=== PATIENT | male | born 1950 | race Caucasian/White ===

== ENCOUNTER → 2020-12-24 14:47 | Outpatient (BNVA) | payer MEDICARE, SELFPAY | PROVIDERS: PCP Internal Medicine; Visit Provider Internal Medicine | DX: I48.19 Other persistent atrial fibrillation (principal); I10 Essential (primary) hypertension; R06.02 Shortness of breath | CPT/HCPCS: 93005 ==

== ENCOUNTER → 2020-12-26 14:01 | Outpatient (BNVA) | payer MEDICARE, SELFPAY | PROVIDERS: PCP Internal Medicine; Visit Provider Nurse Practitioner Family ==

== ENCOUNTER → 2020-12-31 13:58 | Outpatient (BNVA) | payer MEDICARE, SELFPAY | PROVIDERS: PCP Internal Medicine; Visit Provider Nurse Practitioner Family | DX: Z13.89 Encounter for screening for other disorder (principal) | CPT/HCPCS: Q3014 ==

== ENCOUNTER → 2021-01-30 09:31 | Outpatient (REF) | payer MEDICARE, SELFPAY ==
--- NOTE | 2021-01-30 09:46 | CA_ITS ---
Transthoracic Echocardiogram Patient (Last, First, Middle): Law Ferris, Gender: Male Date of : 1950 Age: 70 Procedure Date: 01/30/2021 Procedure Type: Transthoracic Echocardiogram Location: OP Height: 167.64 cm Weight: 73.48 kg BSA: 1.83 m2 Heart Rate: bpm BP: 106 / 54 mmHg Nursery Helper: Jose Miguel MD: Wilfredo Diaz MD Streetcar Starter: Deepak Goode MD Symptoms: I48.19 - Other persistent atrial fibrillation Study Quality: Fair ECG Rhythm: Atrial Fibrillation Conclusions: - 1. Normal LV systolic function 2. Mild biatrial enlargement 3. Mild mitral regurgitation 4. Normal RV systolic pressure 5. No pericardial effusion Findings Left Ventricle Normal left ventricular size, thickness, and systolic function. The visually estimated ejection fraction is between 60-65%. Diastolic function is indeterminate on the basis of available data. Right Ventricle Mildly increased right ventricular cavity size. There is low normal right ventricular systolic function. Atria The left atrium is mildly dilated. There is no evidence of interatrial shunt. The right atrium is mildly dilated. Aortic Valve There is mild calcification of the aortic valve. There is no aortic valve stenosis. There is no aortic valve regurgitation. Mitral Valve There is mild anterior and posterior mitral leaflet thickening. There is mild mitral valve regurgitation. There is no mitral valve stenosis. Pulmonic Valve The pulmonic valve was not well visualized. Tricuspid Valve Likely normal tricuspid valve structure and function. There is mild tricuspid valve regurgitation. The right ventricular systolic pressure is normal. The right ventricular systolic pressure is 27 mmHg. Normal right atrial pressure. There is no evidence of pulmonary hypertension. Great Vessels All visible segments of the aorta are normal in size. The pulmonary artery was not well visualized. Venous The inferior vena cava is normal in size and collapses greater than 50% with inspiration. Pericardium/Pleural There is no evidence of pericardial effusion. Prior Study Comparison No prior study available for comparison. Measurements 2D Linear Measurements RVIDd: 2.71 RVIDd Index: 1.48 IVSd: 0.88 0.6-0.9/0.6-1.0 cm LVIDd: 4.31 3.9-5.3/4.2-5.9 cm LVIDd Index: 2.36 2.4-3.2/2.2-3.1 cm/m2 LVIDs: 3.22 2.0-3.6 cm LVPWd: 1.22 0.7-1.1 cm Ao Root: 2.70 2.1-3.5 cm LA Diam: 4.00 2.7-3.8/3.0-4.0 cm LAIDs Index: 2.19 1.5-2.3 cm/m2 LV Mass: 190.90 67-162/88-224 g LV Mass Index: 104.32 43-95/49-115 g/m2 LVOT Diam: 2.00 3.0+(-)1.3 cm 2D Systolic Function EF 4C: 66.90 >55% EF 2C: 78.60 >55% EF BiP: 72.90 >55% Mitral Valve MR Vol - PW Dopp: 15.48 MR VTI: 1.29 MR ERO: 12.00 MR Alias Luis M: 0.31 MR RAD: 0.50 Aortic Valve AoV Pk Luis M: 1.75 AoV Mn Luis M: 1.13 AoV VTI: 0.33 AoV Pk Grad: 12.00 Aov Mn Grad: 6.00 TAM Cont.VTI: 2.07 LVOT LVOT Pk Luis M: 1.07 LVOT Mn Luis M: 0.77 LVOT VTI: 0.22 LVOT Pk Grad: 5.00 LVOT Mn Grad: 3.00 LVOT Diam: 2.00 LVOT Area: 3.14 Tricuspid Valve TR Pk Luis M: 2.45 TR Pk Grad: 24.00 RA Press: 3.00 RVSP: 27.00 Great Vessels Aorta Ao Root-2D: 2.70 2.0-3.7 cm Ao Asc: 2.70 2.1-3.4 cm Ao Arch: 2.30 Updated in Other Vendor System with Status of Final Deepak Goode MD electronically signed on 01/30/2021 5:09:13 PM with status of Final
--- NOTE | 2021-01-30 09:46 | ECG_ITS ---
Hook-up date: 2021-01-30 10:53:00 Duration: 47:59:00 Test Indications: PERSISTENT ATRIAL FIB Medications: [id number] QRS complexes 62 Ventricular ectopics which represent <1 % of total QRS comp. 1 Supraventricular ectopics which represent <1 % of total QRS comp. * Paced QRS complexs which represent % of total QRS comp. VENTRICULAR ECTOPY 62 Isolated 0 Bigeminal Cycles 0 Couplets 0 Runs 0 Beats in Runs * Beats LONGEST at * BPM at :: -- * Beats FASTEST at * BPM at :: -- SUPRAVENTRICULAR ECTOPY 1 Isolated 0 Couplets 0 Runs 0 Beats in Runs * Beats LONGEST at * BPM at :: -- * Beats FASTEST at * BPM at :: -- HEART RATES 36 MIN at 07:04:30 2021-01-31 99 AVG 179 MAX at 15:10:21 2021-01-30 LONGEST RR 2.2240 secs at 07:04:28 2021-01-31 S-T LEVELS Channel 1 - 128 mm at 10:53:00 2021-01-30 - 128 mm at 10:53:00 2021-01-30 Channel 2 - 128 mm at 10:53:00 2021-01-30 - 128 mm at 10:53:00 2021-01-30 Channel 3 - 128 mm at 03:01:21 -- - 128 mm at 03:01:21 Underlying rhythm is atrial fibrillation; Average ventricular rate 99/min; range 36-179/min; About 61% of the time, ventricular rate >100/min; Tachycardic episodes predominantly during day; Rare PVCs; Patient did not report any symptoms in the diary Referred By: Kerry Watts Overread By: KERRY WATTS
== END ==
LOC: HO.CARD 09:31
PROVIDERS: PCP Internal Medicine; Visit Provider Internal Medicine
DX: I48.19 Other persistent atrial fibrillation (principal)
CPT/HCPCS: 93225; 93226; 93306

== ENCOUNTER → 2021-02-13 12:33 | Outpatient (BNVA) | payer MEDICARE, SELFPAY | PROVIDERS: PCP Internal Medicine; Visit Provider Internal Medicine | DX: I48.19 Other persistent atrial fibrillation (principal); I10 Essential (primary) hypertension; R06.02 Shortness of breath | CPT/HCPCS: 93005; 99212 ==

== ENCOUNTER 2021-02-20 09:01 | Day surgery (SDC) | payer MEDICARE, SELFPAY ==
[2021-02-20 11:32] VITALS: BMI 24.5
[2021-02-20 11:38] VITALS: BP 128/84; PULSE 87; RESP 18; TEMP 36.1; O2SAT 97
--- NOTE | 2021-02-20 11:39 | P.CONAN_ITS ---
[facility] Active Problems Active Problems: All Active Problems (Updated 12/24/20 @ 15:47 by Wilfredo huff MD) Essential hypertension (Acute) Shortness of breath (Acute) Persistent atrial fibrillation (Acute) Past Medical History Medical History Essential hypertension Persistent atrial fibrillation Family History Family History Father History of coronary artery bypass graft Heart disease Lyme disease Mother Heart disease Surgical History Surgical History H/O colonoscopy H/O hand surgery History of inguinal hernia repair History of removal of testicle Social History Social History Housing: Assisted Living Facility Alcohol intake: current Alcohol intake frequency: 3 or more drinks per day Alcohol type: wine and hard liquor Smoking Status: Current every day smoker Tobacco Type: Cigar and E-Cigarette Cigarettes Per Day: 1 Use of substances other than those prescribed or required for medical reasons: Yes Substance Use Type: Marijuana Advance Directives: No Advance Directives Information Provided: Yes Meds Allergies Allergy/AdvReac Type Severity Reaction Status Date / Time indomethacin Allergy went Verified 02/13/21 12:53 psychotic Home Medications Medication Instructions Recorded Confirmed Last Taken Type allopurinol 300 mg tablet 300 mg PO DAILY 12/24/20 02/13/21 Unknown History cholecalciferol (vitamin D3) 50 50 mcg PO DAILY 12/24/20 02/13/21 Unknown History mcg (2,000 unit) capsule cyanocobalamin (vitamin B-12) 1,000 mcg PO DAILY 12/24/20 02/13/21 Unknown History 1,000 mcg capsule dabigatran etexilate 150 mg capsule 150 mg PO BID 12/24/20 02/13/21 Unknown History diltiazem HCl 240 mg capsule,24 240 mg PO DAILY 12/24/20 02/13/21 Unknown History hr,extended release doxazosin 4 mg tablet 4 mg PO DAILY 12/24/20 02/13/21 Unknown History ezetimibe 10 mg tablet 10 mg PO DAILY 12/24/20 02/13/21 Unknown History folic acid 0.8 mg capsule 0.8 mg PO DAILY 12/24/20 02/13/21 Unknown History levothyroxine 50 mcg tablet 50 mcg PO DAILY 12/24/20 02/13/21 Unknown History pravastatin 80 mg tablet 80 mg PO DAILY tab 12/24/20 02/13/21 Unknown History ramipril 2.5 mg capsule 2.5 mg PO DAILY 12/24/20 02/13/21 Unknown History kmecwvrvgzzh-fuo-gaclz acid-vit 1 tab PO DAILY 12/31/20 02/13/21 Unknown History K-lycop 400 mcg-20 mcg-370 mcg tablet Exam Exam Date and Time: February 20, 2021 1139 Height,Weight and Vital Signs: Height 5 ft 6 in Weight 69.116 kg Airway Mallampati Class: II TM Dist: >3cm Neck ROM: Full Heart: irregular Lungs: CTA
[2021-02-20] MEDS: Lactated Ringers 1,000 ML 20 ML IVCONT (11:47)
[2021-02-20 12:24] VITALS: BP 128/84; PULSE 87; RESP 18; TEMP 36.1; O2SAT 97; BMI 24.5
--- NOTE | 2021-02-20 12:28 | MHC.SHP ---
Pre-Procedural Eval Section B Chief Complaint: Screening Relevant Family History (Specify if Yes): No Relevant Social History: Tobacco Use (everyday drinker) Present Medications: see Short Stay Collaborative assessment Medical History: Significant History (Essential hypertension Persistent atrial fibrillation) History of Previous Operations: Relevant previous surgery/procedure and date(s) Allergies: Allergies Allergy/AdvReac Type Severity Reaction Status Date / Time indomethacin Allergy went Verified 02/13/21 12:53 psychotic Review of Systems Sugical H&P ROS: Negative: Constitution, Cardiovascular, Respiratory, Neurological, Psychiatric, Hem-Onc, Allergic/Immunologic, Gastrointestinal, Genitourinary, Musculoskeletal, Integumentary, Endocrine and Eyes/Ears/Nose/Throat Exam Surgical H&P Exam: Normal: HEENT, Normal: Heart, Normal: Lungs, Normal: Extremities, Normal: Abdomen, Normal: Skin and Normal: Neurological Plan Diagnosis/Plan: Unchanged I have reviewed the history and physical and performed a pertinent physical examination on my patient. No changes have occurred unless specified.
--- NOTE | 2021-02-20 12:29 | PM.OP ---
Brief Operative Note Date of Service: 02/20/21 Pre-op diagnosis: hx of colon polyps Post-op diagnosis: same Procedure: see op note Surgeon: Ulises Helm MD Anesthesia: MAC Estimated blood loss (mL): 0 Condition: stable Disposition: PACU
--- NOTE | 2021-02-20 12:30 | W.PM.OPN ---
Operative Note Operative Note Date of Service: 02/20/21 Narrative: Operative Information Procedure Description: Colonoscopy COLONOSCOPY Instrument: Olympus variable stiffness pediatric scope 190L Colonoscopy Monitoring: Vital signs and clinical assessment, continuous EKG monitoring, Pulse oximetry, Carbon Dioxide monitoring and blood pressure monitoring were done throughout the procedure. Colon withdrawal time was 20 minutes. Procedure: The patient was placed in the left lateral decubitis position and pre-procedure medications were administered. After a digital rectal examination of the ano-rectum, the video colonoscope was inserted into the rectum and advanced through the colon to the cecum/TI. The colonoscope was slowly withdrawn in a retrograde panoramic fashion and the colon mucosa was carefully examined including a retroflexed view of the rectum. Findings and interventions are described below. Procedure Difficulty:easy Findings: Terminal Ileum-normal Cecum:normal Ascending Colon: normal Transverse Colon - x 2 sessile polyps measuring 8-10 mm removed with cold snare Descending Colon: 8-9 mm sessile polyp removed with cold snare Sigmoid Colon: normal Rectum: Retroflexion with small internal hemorrhoids, grade I, x 4 sessile polyps measuring 10 mm removed with cold snare Anorectum - normal Colon preparation: Phoenix Bowel Preparation Scale Right colon; 2 Transverse colon: 1 Left colon; 1 (0 = Unprepared colon segment with mucosa not seen due to solid stool that cannot be cleared. 1 = Portion of mucosa of the colon segment seen, but other areas of the colon segment not well seen due to staining, residual stool and/or opaque liquid. 2 = Minor amount of residual staining, small fragments of stool and/or opaque liquid, but mucosa of colon segment seen well. 3 = Entire mucosa of colon segment seen well with no residual staining, small fragments of stool or opaque liquid) Impression and Post Procedure Diagnosis: polyps internal hemorrhoids Plan: High fiber diet leaflet Avoid straining at stool, epsom salts and sitz bath, anusol supps or cream Repeat Colonoscopy in 8-12 months or earlier if clinically indicated review prep for next time restart anti coagulation tomorrow Above findings were reviewed with the patient and relevant handouts were provided if indicated.
[2021-02-20 13:18] VITALS: BP 114/67; PULSE 82; RESP 16; TEMP 36.2; O2SAT 93
[2021-02-20 13:31] VITALS: BP 103/60; PULSE 88; RESP 18; O2SAT 93
[2021-02-20 13:45] VITALS: BP 128/81; PULSE 90; RESP 18; TEMP 36.1; O2SAT 95
== END 2021-02-20 14:24 | disposition home or self-care (01) ==
PROVIDERS: PCP Internal Medicine; Visit Provider Internal Medicine Gastroenterology
PROC: 0DJD8ZZ Inspection of Lower Intestinal Tract, Via Natural or Artificial Opening Endoscopic (ICD-10-PCS; CPT 45378; principal; 2021-02-20 12:50)
DX: Z12.11 Encounter for screening for malignant neoplasm of colon (principal); K63.5 Polyp of colon; K62.1 Rectal polyp; K64.0 First degree hemorrhoids; I10 Essential (primary) hypertension; I48.19 Other persistent atrial fibrillation; Z79.899 Other long term (current) drug therapy; Z88.8 Allergy status to other drugs, medicaments and biological substances; F17.290 Nicotine dependence, other tobacco product, uncomplicated
CPT/HCPCS: 45385; 88305

== ENCOUNTER 2021-03-18 11:01 | Outpatient (REF) | payer MEDICARE, SELFPAY ==
[2021-03-18 12:47] LABS: Alanine Aminotransferase 16 U/L (0-40); Albumin Level 3.8 g/dL (3.5-5.0); Alkaline Phosphatase 61 U/L (39-117); Anion Gap 13 (12-20); Aspartate Amino Transferase 26 U/L (5-37); Bilirubin Direct < 0.2 mg/dL (0.0-0.5); Bilirubin Total 0.5 mg/dL (0.0-1.0); Blood Urea Nitrogen 20 mg/dL (9-16); Calcium 9.2 mg/dL (8.4-10.2); Carbon Dioxide 22 mmol/L (22-29); Chloride 107 mmol/L (96-108); Estimated Glomerular Filt Rate > 60; Glucose Random 99 mg/dL (60-115); Potassium 5.3 mmol/L (3.3-5.1); Sodium 137 mmol/L (135-145); Total Protein 7.4 g/dL (6.5-8.0)
[2021-03-18 13:33] LABS: Syphilis Screen Nonreactive (Nonreactive)
[2021-03-18 13:34] LABS: Vitamin B12 1851 pg/mL (200-900)
[2021-03-20 07:01] LABS: Lyme Abs Screen <0.90 index
== END 2021-03-18 11:02 | disposition home or self-care (01) ==
LOC: HO.LAB 11:01
PROVIDERS: PCP Internal Medicine; Visit Provider Psychiatry & Neurology Neurology
DX: F06.8 Other specified mental disorders due to known physiological condition (principal); F10.10 Alcohol abuse, uncomplicated
CPT/HCPCS: 36415; 80048; 80076; 82607; 86617; 86618; 86780

== ENCOUNTER 2021-03-22 10:02 | Outpatient (REF) | payer MEDICARE, SELFPAY ==
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
== END 2021-03-22 10:03 | disposition home or self-care (01) ==
LOC: HO.MRI 10:02
PROVIDERS: Visit Provider Psychiatry & Neurology Neurology
DX: F06.8 Other specified mental disorders due to known physiological condition (principal)
CPT/HCPCS: 70551

== ENCOUNTER 2021-04-03 10:34 | Outpatient (REF) | payer MEDICARE, SELFPAY ==
--- NOTE | 2021-04-03 10:41 | EMG_ITS ---
This is a 70-year-old man with weakness and atrophy of the right hand, numbness in 4th and 5th fingers who has had bilateral carpal tunnel repair a few years ago and now getting worse with inability to use the right hand, which has become like a claw. Some mild symptoms on the left. He also has heart disease, is on amlodipine and Xarelto. PHYSICAL EXAMINATION: On examination, he has atrophy of the ulnar innervated intrinsic hand muscles on the right. He has a flexion contracture of the right 4th finger. Well-healed scar of previous carpal tunnel release. IMPRESSION: Bilateral carpal tunnel syndrome, right ulnar neuropathy. Nerve conduction EMG study: Mild bilateral carpal tunnel syndrome. 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 EMG of the right C5-T1 innervated muscles shows active denervation in the ulnar innervated intrinsic hand muscles consistent with active and severe ulnar neuropathy on the right. MD SAMIR Gandhi/CRISTHIAN / [id number]
== END 2021-04-03 10:35 | disposition home or self-care (01) ==
LOC: HO.NEURO 10:34
PROVIDERS: PCP Internal Medicine; Visit Provider Emergency Medicine
DX: G56.03 Carpal tunnel syndrome, bilateral upper limbs (principal)
CPT/HCPCS: 95886; 95913

== ENCOUNTER → 2021-04-08 11:20 | Outpatient (BNVA) | payer MEDICARE, SELFPAY | PROVIDERS: PCP Internal Medicine; Referring Provider Internal Medicine; Visit Provider Nurse Practitioner Family | DX: Z98.890 Other specified postprocedural states (principal) | CPT/HCPCS: 99212 ==

== ENCOUNTER → 2021-07-17 09:42 | Outpatient (BNVA) | payer MEDICARE, SELFPAY | PROVIDERS: Visit Provider Orthopaedic Surgery | DX: G56.21 Lesion of ulnar nerve, right upper limb (principal); G56.03 Carpal tunnel syndrome, bilateral upper limbs; M25.641 Stiffness of right hand, not elsewhere classified; M65.331 Trigger finger, right middle finger | CPT/HCPCS: 99202 ==

== ENCOUNTER 2021-08-08 06:14 | Day surgery (SDC) | payer MEDICARE, SELFPAY ==
[2021-08-08] VITALS (8 sets, daily range): BP systolic 112–144; BP diastolic 60–87; PULSE 63–73; RESP 16–20; TEMP 36.2–36.4; O2SAT 87–95; BMI 27.4
--- NOTE | 2021-08-08 07:23 | MHC.SHP ---
Pre-Procedural Eval Section A Date of Service: 08/08/21 The patient is an INPATIENT: No Changes since office visit: No Cold of Flu in the past 2 weeks, No New Medical Problems, No Changes in Medication and No Patient answered all questions The History & Physical has been completed within 30 days and I have reviewed it.: Yes Section B Chief Complaint: carpal tunnel syndrome Allergies: Allergies Allergy/AdvReac Type Severity Reaction Status Date / Time indomethacin Allergy went Verified 07/17/21 10:13 psychotic Plan I have reviewed the history and physical and performed a pertinent physical examination on my patient. No changes have occurred unless specified.
--- NOTE | 2021-08-08 07:24 | P.OP_ITS ---
Operative Note Operative Note Date of Service: 08/08/21 Narrative: Operative Note Narrative: Preop diagnosis: 1. Right Cubital tunnel syndrome 2. Right middle finger trigger finger 3. Right middle finger PIP joint stiffness Postop diagnosis: Same Procedure: 1. Right Cubital Tunnel Release 2. Right middle finger A1 kyra release 3. Right middle finger ulnar slip FDS tenotomy 4. Right middle finger PIP joint closed manipulation Surgeon: Amaris Inman MD Anesthesia: General Findings: He still had locking and catching after the right middle finger A1 kyra release. No locking and catching after the right middle finger FDS ulnar slip tenotomy. Thickening and fibrosis about the ulnar nerve at the cubital tunnel Implants: none Tourniquet time: 45 minutes EBL: 5.0 ml Specimen: Right middle finger ulnar slip of flexor digitorum superficialis tendon Drains: None Complications: None Disposition: Brought to the recovery room in stable condition Plan: Follow-up in 10-14 days for wound check, and suture removal and to check pathology Check range of motion. Patient had closed manipulation of the middle finger PIP joint. If having difficulty with range of motion recommend early OT hand therapy Indications: The patient is 70 years old man with right cubital tunnel syndrome and a right middle finger trigger finger with stiffness in the PIP joint . The risks and benefits of operative treatment, including but not limited to risk of damage to blood vessels, nerves, tendons, infection, recurrence, persistent pain or numbness, incomplete resolution of preoperative symptoms, or need for further surgery were discussed with the patient and they wished to proceed with surgery. Procedure: Once consent was obtained patient was brought back to the operating suite and placed in the operating table in a supine position. Perioperative antibiotics and anesthesia was administered by the anesthesia team. The limb was prepped and draped in a standard surgical fashion, and a sterile tourniquet applied to the proximal aspect of the right upper extremity. The limb was elevated exsanguinated with Esmarch bandage and the tourniquet inflated to 250 mm of mercury for a total tourniquet time of 45 minutes. Once assured that we had a good block, a 1.5 cm oblique incision was made centered over the A1 kyra of the right middle finger . The incision was made through the skin to the subcutaneous tissues using a #15 blade. Careful dissection was made down to the level of the A1 kyra using tenotomy scissors, with care being taken to protect the nearby neurovascular structures. A longitudinal incision was made in the A1 kyra 1st using a #15 blade, then using tenotomy scissors under direct visualization. The A1 kyra was noted to be thickened. Following our A1 kyra release, we saw that he still had locking of his middle finger with passive flexion and extension. The decision was then made to proceed with a tenotomy of the ulnar slip of the flexor digitorum superficialis tendon. I made a partial Baljit incision centered over the volar aspect of the PIP joint. The incision was made through the skin to the subcutaneous tissues using a 15. Blade. I then carefully dissected down to the level of the flexor tendon sheath and opened the flexor tendon sheath through the A- 3 kyra. The FDP tendon was retracted and and the ulnar slip of the FDS tendon was cut just proximal to its insertion using tenotomy scissors. A 15. Blade and tenotomy scissors were then used to split the 2 halves of the FDS tendon extending proximally. I then was able to withdraw the ulnar slip of the FDS tendon back through the A1 kyra area. The ulnar half of the FDS tendon was then tenotomy mice in this area making a bevel cut using a 15. Blade. It was then passed off to the back table to be sent for pathology. He no longer had locking or catching with passive flexion and extension. A gentle closed manipulation of the right middle finger PIP joint to improve active and passive range of motion was then performed. Were then able to passively bring the middle finger down to a fully closed fist and then back into full extension this was a significant improvement. Our attention was then turned to the cubital tunnel release. A 6 cm gently curved but longitudinally oriented incision was made centered over the cubital tunnel of the right upper extremity. Incision was made through the skin to the subcutaneous tissues using a # 15 Blade. I then dissected down to the level of the medial epicondyle and the cubital tunnel using tenotomy scissors. Care was taken to protect the lateral antebrachial cutaneous nerve. The ulnar nerve was identified just posterior to the medial intermuscular septum. Small vessel loop was passed behind the ulnar nerve and used to apply gentle traction to facilitat e our release. The ulnar nerve was released in a proximal to distal direction using tenotomy in iris scissors while directly visualizing and protecting the ulnar nerve. Thickening and fibrosis was appreciated about the ulnar nerve as it passed through the cubital tunnel. The ulnar nerve was assessed as I passed the elbow through full flexion and extension and was found to remain stable within its groove. The tourniquet was deflated and hemostasis obtained with a brief period of local pressure and bipolar electrocautery. The wounds were copiously irrigated with normal saline. The subcutaneous layer was closed with 4-0 Vicryl suture, and the skin edges were reapproximated with 5-0 nylon suture. The wound was infiltrated with some 0.25% plain Marcaine for postop pain control and sterile dressings and a posterior splint was applied. The patient appears to have tolerated the procedure well and with no complications. All digits were well vascularized conclusion of the case.
--- NOTE | 2021-08-08 10:05 | P.CONAN_ITS ---
[facility] Active Problems Active Problems: All Active Problems (Updated 08/01/21 @ 11:06 by Jaclyn bryant RN) Shortness of breath (Acute) Cubital tunnel syndrome on right (Acute) Carpal tunnel syndrome of right wrist (Acute) Carpal tunnel syndrome of left wrist (Acute) Stiffness of finger joint of right hand (Acute) Trigger finger, right middle finger (Acute) Essential hypertension (Acute) Persistent atrial fibrillation (Acute) Past Medical History Medical History Essential hypertension Excessive drinking alcohol HTN (hypertension) Hypercholesteremia Hypothyroidism On anticoagulant therapy Paresthesias Persistent atrial fibrillation Family History Family History Father History of coronary artery bypass graft Heart disease Lyme disease Mother Heart disease Family history of problems with anesthesia: No Surgical History Surgical History H/O colonoscopy H/O hand surgery History of inguinal hernia repair History of removal of testicle History of Problems with Anesthesia: No Social History Social History Household Members Other:: [facility] living Housing: Assisted Living Facility Alcohol intake: current Alcohol intake frequency: 3 or more drinks per day Alcohol type: wine and hard liquor Patient Tobacco Use Status: Current everyday Tobacco user Tobacco use type: Cigar and Smokeless Tobacco Cigarettes Per Day: 1 Second Hand Smoke Exposure: No Use of substances other than those prescribed or required for medical reasons: Yes Substance Use Type: Marijuana Are you DNR?: No Advance Directives: No Advance Directives Information Provided: Yes Advance Directives on File: No Current occupational status: retired Current occupation: rt hand Meds Allergies Allergy/AdvReac Type Severity Reaction Status Date / Time indomethacin Allergy went Verified 07/17/21 10:13 psychotic Home Medications Medication Instructions Recorded Confirmed Last Taken Type allopurinol 300 mg tablet 300 mg PO DAILY 12/24/20 08/01/21 Unknown History cholecalciferol (vitamin D3) 50 50 mcg PO DAILY 12/24/20 08/01/21 Unknown History mcg (2,000 unit) capsule cyanocobalamin (vitamin B-12) 1,000 mcg PO DAILY 12/24/20 08/01/21 Unknown History 1,000 mcg capsule doxazosin 4 mg tablet 4 mg PO DAILY 12/24/20 08/01/21 Unknown History ezetimibe 10 mg tablet 10 mg PO DAILY 12/24/20 08/01/21 Unknown History folic acid 0.8 mg capsule 0.8 mg PO DAILY 12/24/20 08/01/21 Unknown History levothyroxine 50 mcg tablet 50 mcg PO DAILY 12/24/20 08/01/21 Unknown History pravastatin 80 mg tablet 80 mg PO DAILY tab 12/24/20 08/01/21 Unknown History ramipril 2.5 mg capsule 2.5 mg PO DAILY 12/24/20 08/01/21 Unknown History fqkmjvtpqufh-cbl-pbrrh acid-vit 1 tab PO DAILY 12/31/20 08/01/21 Unknown History K-lycop 400 mcg-20 mcg-370 mcg tablet (Men's 50 Plus Multivitamin) diltiazem HCl 240 mg capsule,24 1 cap PO DAILY 08/01/21 08/01/21 Unknown History hr,extended release (Tiadylt ER) Exam Exam Date and Time: August 08, 2021 1005 Height,Weight and Vital Signs: Height 5 ft 6 in Weight 170 lb Last Vital Signs Temp 97.1 F 08/08/21 07:25 Pulse 70 08/08/21 07:25 Resp 18 08/08/21 07:25 BP 144/64 H 08/08/21 07:25 Pulse Ox 94 08/08/21 07:25 Airway Mallampati Class: II TM Dist: >3cm Neck ROM: Full Loose/Missing/Broken Teeth: Yes (Most teeth missing; none loose per report; poor dentition) Assessment and Plan Assessment Anesthesia Assessment: Anesthesia Plan Discussed and Chart Reviewed Final Anesthetic Review Family History of Problems with Anesthesia: No History of Problems with Anesthesia: No NPO: Yes ASA Class: III Final Preanesthetic Review: No Changes in Pt Med Stat, Meds/Allgs Chart Reviewed, Consent Obtained/Reviewed and Anes Risks/Benef Reviewed Patient Risk: High Procedure Risk: Low Anesthetic Plan Anesthetic Plan: GA Disposition: Standard PACU
== END 2021-08-08 12:51 ==
PROVIDERS: PCP Internal Medicine; Visit Provider Orthopaedic Surgery
PROC: (CPT 64718; principal; 2021-08-08 08:45)
DX: G56.21 Lesion of ulnar nerve, right upper limb (principal); M65.331 Trigger finger, right middle finger; M25.641 Stiffness of right hand, not elsewhere classified; I10 Essential (primary) hypertension; I48.91 Unspecified atrial fibrillation; Z79.01 Long term (current) use of anticoagulants; F12.90 Cannabis use, unspecified, uncomplicated
CPT/HCPCS: 64718; 26055; 26340; 88304; J1170

== ENCOUNTER → 2021-08-14 13:37 | Outpatient (BNVA) | payer MEDICARE, SELFPAY | PROVIDERS: PCP Internal Medicine; Referring Provider Internal Medicine; Visit Provider Internal Medicine | DX: I48.19 Other persistent atrial fibrillation (principal); I10 Essential (primary) hypertension | CPT/HCPCS: 99212 ==

== ENCOUNTER → 2021-08-20 10:23 | Outpatient (BNVA) | payer MEDICARE, SELFPAY | PROVIDERS: Visit Provider Orthopaedic Surgery | DX: G56.21 Lesion of ulnar nerve, right upper limb (principal); M65.331 Trigger finger, right middle finger; M25.641 Stiffness of right hand, not elsewhere classified; R20.2 Paresthesia of skin; I10 Essential (primary) hypertension; E78.00 Pure hypercholesterolemia, unspecified; I48.19 Other persistent atrial fibrillation; F10.20 Alcohol dependence, uncomplicated; F17.290 Nicotine dependence, other tobacco product, uncomplicated; Z98.890 Other specified postprocedural states; Z88.6 Allergy status to analgesic agent; Z88.8 Allergy status to other drugs, medicaments and biological substances | CPT/HCPCS: 99212 ==

== ENCOUNTER 2021-10-02 14:00 | Outpatient (RCR) | payer MEDICARE, SELFPAY ==
--- NOTE | 2021-10-03 11:13 | MHC.OT.DC ---
[address] [phone] F: [phone] Occupational Therapy Discharge Note Provider: Amaris Inman Diagnosis: STIFFNESS IN RIGHT HAND Date of Surgery: 08/08/21 Date of Evaluation: 09/06/21 Date of Discharge: 10/03/21 Treatments to Date: 8 Discharge Status: Achieved Goals Improved Function Independent with HEP Discharge Summary: MR ANGEL HAS PROGRESSED WELL WITH HIS OT TREATMENT SESSIONS. HE HAS REMAINED ESSENTIALLY PAINFREE AND DEMONSTRATES GOOD FOLLOW THROUGH WITH HEP. HE HAS BEEN ABLE TO RETURN TO HIS MEANINGFUL AND PURPOSEFUL ACTIVITIES. NO FURTHER OT IS WARRANTED AT THIS TIME - Pt IS BEING TRANSITIONED TO A HOME BASED PROGRAM. D/C OT. Electronically Signed By: KRISTINE RUVALCABA/Erika Reviewed/agree with student documentation: N/A Therapist: Please Sign and return to therapist, thank you for your referral.
--- NOTE | 2021-10-03 11:19 | MHC.OT.OEV ---
[address] [phone] F: [phone] Occupational Therapy Evaluation Eval Date: 09/06/21 Diagnosis: STIFFNESS IN RIGHT HAND Date of Surgery: 08/08/21 Attending Provider: Amaris Meneses Prescribed Treatment: EVAL AND TREAT History of Current Condition: UNDERWENT R MIDDLE FINGER A1 PULLY RELEASE, R MIDDLE FINGER FDS TENOTOMY, R D3 PIPj CLOSED MANIPULATION, R CUBITAL TUNNEL RELEASE WITH DR MENESES. HIS EMG HAD SHOWED SEVERE COMPRESSION PALSY OF THE R ULNAR NERVE. Significant Medical History: B/L CTR IN 2011 Precautions/Contraindications: POST OP 08/08/21 Patient Goals: TO IMPROVE DEXTERITY AND STRENGTH IN RIGHT HAND Hand Dominance: Right Observations: ABLE TO COMPLETE PEN AND PAPER TASKS WITH DOMINANT R HAND QuickDASH Score: 2% Prior Level of Function and Occupation Self Care, Employment, Leisure: IND BATHING AND DRESSING. RECEIVES ASSISTANCE FROM STAFF AT [facility] FOR HEAVY HOUSEHOLD TASKS, EXCEPT PATIENT DOES HIS OWN LAUNDRY AND WASHING A FEW DISHES. STAFF PROVIDES MEALS. HOBBIES: WHITE WATER RAFTING, FUNERAL ATTENDANT, FINE METAL FINISHING, CARVING, KNIT, MARIANN, COOKING ATTENDS GROUP EXERCISE CLASSES 3X/WEEK Living Situation, Family and/or Social Support: LIVES IN INDEPENDENTLY LIVING AT [facility] Current Level of Function and Occupation Self Care, Employment, Leisure: NO DIFFICULTIES WITH DRESSING AND BATHING. ABLE TO DO ZIPPERS, FEED SELF, WASH HAIR. UTILIZING COMPENSATORY TECHNIQUES AT BASELINE (AVOIDS CLOTHES WITH BUTTONS, WEARS SLIP ON SHOES, ETC) HAS NOT RETURNED TO MOST HOBBIES YET. RESUMED GROUP EXERCISE CLASSES AND USING 3 POUND HAND WEIGHTS. Sleep: NO TROUBLES Driving: NO DIFFICULTIES Vision: READING GLASSES Balance: AMBULATES WITH SPC Pain Assessment Pain Score: 0 Pain Scale Used: Numeric (0 - 10) Pain Location and Description: PAINFREE AT REST AND WITH ACTIVITY AT ELBOW AND RIGHT HAND Aggravating Factors: DENIES Alleviating Factors: DENIES Skin and Soft Tissue Assessment Skin and Soft Tissue: Wound Scar Tissue Comments: RIGHT MEDIAL ELBOW SCAR; HEALED VOLAR HAND SCAR OF MIDDLE FINGER OA CHANGES IN IPs Sensory Assessment Temperature: Light Touch: WFL Proprioception: Vibration: Comments: SEMMES LUI: INTACT TO LIGHT TOUCH AT VOLAR HAND AND MEDIAL ELBOW Edema Assessment Upper Extremity: Right Impaired Lower Extremity: Comments: CIRCUMFERENCE OF PIPj OF MIDDLE FINGER: RIGHT 7.5 CM, LEFT 6.2 CM Dexterity Assessment Dexterity: B/L Impaired Comments: FUNCTIONAL DEXTERITY TEST: RIGHT 68 SECONDS (NON-FUNCTIONAL) LEFT 52 SECONDS Special Tests Comments: AROM(PROM) Strength Elbow Flexion: R 10, L 4 Extension: R 140, L 148 Pronation: R 84, L 84 Supination: L 68, L 70 Comments: Flexion: Extension: Pronation: Supination: Comments: Wrist Flexion: R 62, L 60 Extension: R 62, L 62 Ulnar Deviation: Radial Deviation: Comments: Flexion: Extension: Ulnar Deviation: Radial Deviation: Comments: Digits Index MCP: PIP: DIP: Long MCP: L 90, R 90 PIP: L 12/ 84, L 6/ 100 DIP: L 84, R 88 Ring MCP: PIP: L 18 EXTENSION DIP: Small MCP: PIP: DIP: Comments: Gross Grasp: L 60 Lateral Pinch: L 11 Two-Point Pinch: L 7 Three-Jaw Jb: L 10 Comments: R TESTING DEFERRED Patient Education Primary Language: Faroese Technical Developer Required: No Current Knowledge: Understands information with skills for self-management Teaching Method: Audio/Video Demonstration Handouts Phone Call Verbal Education Needs Identified on Evaluation: ADL's Disease Information Equipment Use Exercise Pain Safety How did patient/family demonstrate learning? Patient demonstrates Patient verbalizes Barriers to Learning: None Readiness for Learning: Accepting Who was educated? Patient Comments: Plan of Care Assessment: MR ANGEL PRESENTS FOUR WEEKS POST OP TO THE SURGERIES MENTIONED ABOVE. HE IS DOING VERY WELL AND REPORTS HE IS PAINFREE. HE RESUMED HIS EXERCISE CLASSES AT HIS [facility]DEPENDENT [facility]IVING FACILITY, ABLE TO DO ALL SELF CARE TASKS WITHOUT DIFFICULTIES. HIS GOAL FOR THERAPY IS TO IMPROVED HIS DEXTERITY AND STRENGTH IN HIS DOMINANT RIGHT UE TO BE ABLE TO RESUME HIS HOBBIES. HE REPORTS A 2% LIMITATION PER THE QUICK DASH ASSESSMENT. WILL CONTINUE TO FOLLOW FOR ONGOING OT SERVICES TO ACHIEVE MAXIMUM FUNCTIONAL LEVEL, IMPROVE QOL AND ALLOW FOR SAFE RETURN TO HOBBIES. STG Duration: Short Term Goals: SEE BELOW LTG Duration: 4 WEEKS Intermediate Goals: IND HEP CONT TO REPORT PAINFREE THOUGH HAND AND ELBOW WITH LIFTING >10 POUNDS IND SCAR MOBILIZATION AND MANAGEMENT R ELBOW <10 DEGREES EXTENSION R PIPj FLEXION TO 94 DEGREES IMPROVE DEXTERITY TO MOD FUNCTIONAL PER FUNCTIONAL DEXTERITY TEST R AIRCRAFT ENGINE ASSEMBLER >40 POUNDS IND JOINT PROTECTION AND ACTIVITY MODIFICATION RETURN TO MEANINGFUL ACTIVITIES AND HOBBIES WITH <MILD DIFFICULTIES Frequency and Duration: The patient will be seen 2X/WEEK FOR 4 WEEKS Treatment Plan: Therapeutic Exercise Therapeutic Activity Home Exercise Program Splinting Neuro Re-ed Patient Education Desensitization/Sensory Re-ed Edema Control ADL Training Ultrasound NMES Iontophoresis Paraffin Fluidotherapy MHP Cold Packs Joint Mobilization Soft Tissue Mobilization Kinesiotaping Electronically Signed By: ELEN GARCIA OTR/L Reviewed/agree with student documentation: N/A Therapist: Please sign and return to therapist, Thank you for your referral.
== END 2021-10-03 11:15 | disposition home or self-care (01) ==
LOC: HO.OT 14:00
PROVIDERS: PCP Internal Medicine; Visit Provider Orthopaedic Surgery
DX: M25.641 Stiffness of right hand, not elsewhere classified (principal); M65.331 Trigger finger, right middle finger
CPT/HCPCS: 97110; 97140; 97166; 97530

== ENCOUNTER → 2022-06-16 13:59 | Outpatient (BNVA) | payer MEDICARE, SELFPAY | PROVIDERS: PCP Internal Medicine; Referring Provider Internal Medicine; Visit Provider Internal Medicine | DX: Z01.810 Encounter for preprocedural cardiovascular examination (principal); I48.19 Other persistent atrial fibrillation; I10 Essential (primary) hypertension; F10.10 Alcohol abuse, uncomplicated; Z79.899 Other long term (current) drug therapy; Z72.0 Tobacco use | CPT/HCPCS: 93005; 99212 ==

== ENCOUNTER → 2022-06-17 14:55 | Outpatient (REF) | payer MEDICARE, SELFPAY ==
--- NOTE | 2022-06-17 14:57 | HM_ITS ---
Conclusion: 1. Patient was monitored for total period of 3 days 2. Baseline rhythm is atrial fibrillation with average heart of 69 beats per minute with adequate rate control 3. No significant pauses greater than 3 seconds 4. Total of 2916 PVCs accounting for 0.37% of total beats accounting for occasional PVCs 5. No patient reported events MTDD
== END ==
LOC: HO.CARD 14:55
PROVIDERS: Visit Provider Internal Medicine
DX: I48.19 Other persistent atrial fibrillation (principal)
CPT/HCPCS: 93242

== ENCOUNTER 2022-07-17 12:49 | Day surgery (SDC) | payer MEDICARE, SELFPAY ==
[2022-07-14 12:07] VITALS: BMI 26.3
[2022-07-17 13:38] VITALS: BP 103/60; PULSE 79; RESP 18; TEMP 36.2; O2SAT 95
[2022-07-17] MEDS: Lactated Ringers 1,000 ML 50 ML IVCONT (13:45)
--- NOTE | 2022-07-17 13:56 | HO.ANESPROP2 ---
[facility] Active Problems Active Problems: All Active Problems (Updated 06/16/22 @ 15:22 by Wilfredo Diaz MD) Excessive drinking alcohol (Acute) Preoperative cardiovascular examination (Acute) Shortness of breath (Acute) Cubital tunnel syndrome on right (Acute) Carpal tunnel syndrome of right wrist (Acute) Carpal tunnel syndrome of left wrist (Acute) Stiffness of finger joint of right hand (Acute) Trigger finger, right middle finger (Acute) Essential hypertension (Acute) Persistent atrial fibrillation (Acute) Past Medical History Medical History Essential hypertension Excessive drinking alcohol HTN (hypertension) Hypercholesteremia Hypothyroidism On anticoagulant therapy Paresthesias Persistent atrial fibrillation Family History Family History Father History of coronary artery bypass graft Heart disease Lyme disease Mother Heart disease Surgical History Surgical History H/O colonoscopy H/O hand surgery History of inguinal hernia repair History of removal of testicle History of Problems with Anesthesia: No Social History Social History Household Members Other:: [facility] living Housing: Assisted Living Facility Alcohol intake: current Alcohol intake frequency: 3 or more drinks per day Alcohol type: wine and hard liquor Patient Tobacco Use Status: Current everyday Tobacco user Tobacco use type: Cigar and Smokeless Tobacco Cigarettes Per Day: 1 Second Hand Smoke Exposure: No Use of substances other than those prescribed or required for medical reasons: Yes Substance Use Type: Marijuana Substance Use Type Other:: THC Are you DNR?: No Advance Directives: No Advance Directives Information Provided: Yes Advance Directives on File: No Current occupational status: retired Current occupation: rt hand Meds Allergies Allergy/AdvReac Type Severity Reaction Status Date / Time indomethacin AdvReac Unknown went Verified 06/16/22 14:05 psychotic Active Medications: Current Medications Lactated Ringer's (Lr) 1,000 mls @ 50 mls/hr IVCONT .Q20H STACEY Last Admin: 07/17/22 13:45 Dose: 50 mls/hr Home Medications Medication Instructions Recorded Confirmed Last Taken Type allopurinol 300 mg tablet 300 mg PO DAILY 12/24/20 06/16/22 Unknown History cholecalciferol (vitamin D3) 50 50 mcg PO DAILY 12/24/20 06/16/22 Unknown History mcg (2,000 unit) capsule cyanocobalamin (vitamin B-12) 1,000 mcg PO DAILY 12/24/20 06/16/22 Unknown History 1,000 mcg capsule doxazosin 4 mg tablet 4 mg PO DAILY 12/24/20 06/16/22 Unknown History ezetimibe 10 mg tablet 10 mg PO DAILY 12/24/20 06/16/22 Unknown History folic acid 0.8 mg capsule 0.8 mg PO DAILY 12/24/20 06/16/22 Unknown History levothyroxine 50 mcg tablet 50 mcg PO DAILY 12/24/20 06/16/22 Unknown History pravastatin 80 mg tablet 80 mg PO DAILY 12/24/20 06/16/22 Unknown History ramipril 2.5 mg capsule 2.5 mg PO DAILY 12/24/20 06/16/22 Unknown History rirumpkhkozp-zhm-rlzly acid-vit 1 tab PO DAILY 12/31/20 06/16/22 Unknown History K-lycop 400 mcg-20 mcg-370 mcg tablet (Men's 50 Plus Multivitamin) diltiazem HCl 180 mg capsule,24 180 mg PO BEDTIME 08/14/21 06/16/22 Unknown History hr,extended release (Tiadylt ER) diltiazem HCl 240 mg capsule,24 240 mg PO DAILY 08/14/21 06/16/22 Unknown History hr,extended release (Tiadylt ER) Exam Exam Date and Time: July 17, 2022 1356 Height,Weight and Vital Signs: Height 5 ft 6 in Weight 73.936 kg Last Vital Signs Temp 97.1 F 07/17/22 13:38 Pulse 79 07/17/22 13:38 Resp 18 07/17/22 13:38 BP 103/60 07/17/22 13:38 Pulse Ox 95 07/17/22 13:38 O2 Del Method 07/17/22 13:38 Airway Mallampati Class: II TM Dist: >3cm Heart: RRR Lungs: CTA Assessment and Plan Assessment Anesthesia Assessment: Anesthesia Plan Discussed and Chart Reviewed Final Anesthetic Review History of Problems with Anesthesia: No NPO: Yes ASA Class: III Final Preanesthetic Review: Meds/Allgs Chart Reviewed, Consent Obtained/Reviewed and Anes Risks/Benef Reviewed Patient Risk: Intermediate Procedure Risk: Low Anesthetic Plan Anesthetic Plan: MAC: Disposition: Standard PACU
--- NOTE | 2022-07-17 14:06 | MHC.SHP ---
Pre-Procedural Eval Section A Date of Service: 07/17/22 Section B Chief Complaint: screening Relevant Family History (Specify if Yes): No Relevant Social History: Tobacco Use Present Medications: see Short Stay Collaborative assessment Medical History: Significant History (Essential hypertension Excessive drinking alcohol HTN (hypertension) Hypercholesteremia Hypothyroidism On anticoagulant therapy Paresthesias Persistent atrial fibrillation) History of Previous Operations: Relevant previous surgery/procedure and date(s) (H/O colonoscopy H/O hand surgery History of inguinal hernia repair History of removal of testicle) Allergies: Allergies Allergy/AdvReac Type Severity Reaction Status Date / Time indomethacin AdvReac Unknown went Verified 06/16/22 14:05 psychotic Review of Systems Sugical H&P ROS: Negative: Constitution, Cardiovascular, Respiratory, Neurological, Psychiatric, Hem-Onc, Allergic/Immunologic, Gastrointestinal, Genitourinary, Musculoskeletal, Integumentary, Endocrine and Eyes/Ears/Nose/Throat Exam Surgical H&P Exam: Normal: HEENT, Normal: Heart, Normal: Lungs, Normal: Extremities, Normal: Abdomen, Normal: Skin and Normal: Neurological Plan Diagnosis/Plan: Unchanged I have reviewed the history and physical and performed a pertinent physical examination on my patient. No changes have occurred unless specified.
--- NOTE | 2022-07-17 14:11 | W.PM.OPN ---
Operative Note Operative Note Date of Service: 07/17/22 Narrative: Operative Information Procedure Description: Colonoscopy Indication: hx of polyps Anesthesia: MAC COLONOSCOPY Instrument: Olympus variable stiffness adult scope 190L Colonoscopy Monitoring: Vital signs and clinical assessment, continuous EKG monitoring, Pulse oximetry, Carbon Dioxide monitoring and blood pressure monitoring were done throughout the procedure. Colon withdrawal time was 9 minutes. Procedure: The patient was placed in the left lateral decubitis position and pre-procedure medications were administered. After a digital rectal examination of the ano-rectum, the video colonoscope was inserted into the rectum and advanced through the colon to the cecum/TI. The colonoscope was slowly withdrawn in a retrograde panoramic fashion and the colon mucosa was carefully examined including a retroflexed view of the rectum. Findings and interventions are described below. Procedure Difficulty: easy Findings: Terminal Ileum-normal Cecum:normal Ascending Colon: normal Transverse Colon -normal Descending Colon:normal Sigmoid Colon:moderate severe diverticulosis Rectum: Retroflexion with small internal hemorrhoids, grade I Anorectum - normal Colon preparation: [place] Bowel Preparation Scale Right colon; 1-2 Transverse colon: 1-2 Left colon; borderline 2 (0 = Unprepared colon segment with mucosa not seen due to solid stool that cannot be cleared. 1 = Portion of mucosa of the colon segment seen, but other areas of the colon segment not well seen due to staining, residual stool and/or opaque liquid. 2 = Minor amount of residual staining, small fragments of stool and/or opaque liquid, but mucosa of colon segment seen well. 3 = Entire mucosa of colon segment seen well with no residual staining, small fragments of stool or opaque liquid) Impression and Post Procedure Diagnosis: internal hemorrhoids diverticular disease Plan: High fiber diet leaflet Avoid straining at stool, epsom salts and sitz bath, anusol supps or cream Repeat Colonoscopy in 1-2 years due to fair prep or earlier if clinically indicated Above findings were reviewed with the patient and relevant handouts were provided if indicated.
[2022-07-17 14:52] VITALS: BP 104/59; PULSE 60; RESP 16; TEMP 36.6; O2SAT 95
[2022-07-17 15:07] VITALS: BP 96/55; PULSE 67; RESP 16; O2SAT 95
[2022-07-17 15:20] VITALS: BP 94/53; PULSE 56; RESP 16; O2SAT 94
[2022-07-17 15:35] VITALS: BP 109/64; PULSE 50; RESP 16; TEMP 36.6; O2SAT 95
== END 2022-07-17 15:52 | disposition home or self-care (01) ==
PROVIDERS: Visit Provider Internal Medicine Gastroenterology
PROC: 0DJD8ZZ Inspection of Lower Intestinal Tract, Via Natural or Artificial Opening Endoscopic (ICD-10-PCS; CPT 45378; principal; 2022-07-17 13:20)
DX: Z12.11 Encounter for screening for malignant neoplasm of colon (principal); Z86.010 Personal history of colon polyps; K57.30 Diverticulosis of large intestine without perforation or abscess without bleeding; K64.0 First degree hemorrhoids; I10 Essential (primary) hypertension; I48.19 Other persistent atrial fibrillation; Z79.01 Long term (current) use of anticoagulants; E78.00 Pure hypercholesterolemia, unspecified; E03.9 Hypothyroidism, unspecified; R20.2 Paresthesia of skin; Z79.899 Other long term (current) drug therapy; Z88.8 Allergy status to other drugs, medicaments and biological substances; Z98.890 Other specified postprocedural states; F12.90 Cannabis use, unspecified, uncomplicated; F10.10 Alcohol abuse, uncomplicated; F17.290 Nicotine dependence, other tobacco product, uncomplicated
CPT/HCPCS: G0105

== ENCOUNTER 2022-07-30 14:13 | Outpatient (REF) | payer MEDICARE, SELFPAY ==
[2022-07-30 15:30] LABS: Alanine Aminotransferase 15 U/L (0-40); Albumin Level 4.1 g/dL (3.5-5.0); Alkaline Phosphatase 70 U/L (39-117); Anion Gap 14 (12-20); Aspartate Amino Transferase 21 U/L (5-37); Bilirubin Total 0.6 mg/dL (0.0-1.0); Blood Urea Nitrogen 17 mg/dL (9-16); Calcium 9.1 mg/dL (8.4-10.2); Carbon Dioxide 27 mmol/L (22-29); Chloride 103 mmol/L (96-108); Estimated Glomerular Filt Rate > 60; Glucose Random 96 mg/dL (60-115); Potassium 4.7 mmol/L (3.3-5.1); Sodium 139 mmol/L (135-145); Total Protein 7.2 g/dL (6.5-8.0)
== END 2022-07-30 14:14 | disposition home or self-care (01) ==
LOC: HO.LAB 14:13
PROVIDERS: PCP Internal Medicine; Visit Provider Nurse Practitioner Family
DX: K59.00 Constipation, unspecified (principal)
CPT/HCPCS: 36415; 80053; 99212

== ENCOUNTER 2022-09-06 19:33 | Emergency (ER) | payer MEDICARE, SELFPAY ==
--- NOTE | 2022-09-06 19:50 | ED_ITS ---
HPI - CPR General Chief Complaint: Cardiac Arrest/CPR Stated Complaint: cardiac arrest Time Seen by Provider: 09/06/22 19:48 Source: EMS, RN notes reviewed and old records reviewed Mode of arrival: EMS Limitations: altered mental status History of Present Illness HPI narrative: 71-year-old male with a past medical history of alcoholism, hypertension, atrial fibrillation presents to the emergency department via EMS status post unwitnessed cardiac arrest. The patient was found unresponsive at his independent living facility. Per EMS, the patient had a large amount of alcohol to drink this evening and was found unresponsive approximately 45-60 minutes prior to arrival here in the emergency room. The patient did undergo ACLS EN route to the hospital, including multiple doses of epinephrine and attempts at defibrillation. The patient was intubated with a LMA. MD complaint: found unresponsive Onset (ago): minute(s) (45-60 minutes [employer]NA[employer]) Place: home Bystander CPR performed: Yes AED applied by bystander/miller first: No Initial findings in the field: unresponsive, no respirations and no pulse ROSC in the field: No Associated injuries: No Known history of: arrhythmia Treatments prior to arrival: other airway device, chest compressions, defibrillated shocks # (4) and epinephrine mgs # (5) Related Data Home Medications Medication Instructions Recorded Confirmed allopurinol 300 mg tablet 300 mg PO DAILY 12/24/20 06/16/22 cholecalciferol (vitamin D3) 50 50 mcg PO DAILY 12/24/20 06/16/22 mcg (2,000 unit) capsule cyanocobalamin (vitamin B-12) 1,000 mcg PO DAILY 12/24/20 06/16/22 1,000 mcg capsule doxazosin 4 mg tablet 4 mg PO DAILY 12/24/20 06/16/22 ezetimibe 10 mg tablet 10 mg PO DAILY 12/24/20 06/16/22 folic acid 0.8 mg capsule 0.8 mg PO DAILY 12/24/20 06/16/22 levothyroxine 50 mcg tablet 50 mcg PO DAILY 12/24/20 06/16/22 pravastatin 80 mg tablet 80 mg PO DAILY 12/24/20 06/16/22 ramipril 2.5 mg capsule 2.5 mg PO DAILY 12/24/20 06/16/22 [id number]-nla-kbert acid-vit 1 tab PO DAILY 12/31/20 06/16/22 K-lycop 400 mcg-20 mcg-370 mcg tablet (Men's 50 Plus Multivitamin) diltiazem HCl 180 mg capsule,24 180 mg PO BEDTIME 08/14/21 06/16/22 hr,extended release (Tiadylt ER) diltiazem HCl 240 mg capsule,24 240 mg PO DAILY 08/14/21 06/16/22 hr,extended release (Tiadylt ER) Previous Rx's Medication Instructions Recorded dabigatran etexilate 150 mg capsule 150 mg PO BID 90 days #180 caps 07/30/21 lactobacillus combination no.4 3 3,000 mmu cells PO DAILY 90 days 09/18/21 billion cell capsule (Probiotic) #90 caps Allergies Allergy/AdvReac Type Severity Reaction Status Date / Time indomethacin AdvReac Unknown went Verified 07/30/22 13:39 psychotic Review of Systems Review of Systems: Yes Unobtainable due to mental status [facility] Past Medical History Source: unable to obtain and old records reviewed Medical History Diverticulosis Essential hypertension Excessive drinking alcohol HTN (hypertension) Hypercholesteremia Hypothyroidism On anticoagulant therapy Paresthesias Persistent atrial fibrillation Surgical History H/O colonoscopy H/O hand surgery History of inguinal hernia repair History of removal of testicle Family History Family History Father History of coronary artery bypass graft Heart disease Lyme disease Mother Heart disease Social History Social History Household Members Other:: [facility] living Housing: Assisted Living Facility Alcohol intake: current Alcohol intake frequency: 3 or more drinks per day Alcohol type: wine and hard liquor Patient Tobacco Use Status: Current everyday Tobacco user Tobacco use type: Cigar and Smokeless Tobacco Cigarettes Per Day: 1 Second Hand Smoke Exposure: No Substance Use Type: Marijuana Advance Directives: No Advance Directives Information Provided: No Current occupational status: retired Current occupation: rt hand Physical Exam Vital Signs: Vital Signs: BMI result Body Mass Index 28.2 Vital signs including blood pressure and pulse all 0 Const: Other: Unresponsive, with Craig General: patient obtunded Orientation/consciousness: patient obtunded HEENT: Head: Yes abrasion and Yes contusion Head images: 1. Abrasion/contusion noted Ears: external ears normal General nose exam: Normal external nose present Face and sinus: Yes normal facial exam Eyes: Pupils: Dilated pupils and Fixed pupils Neck: Neck: Yes normal visual inspection Chest: Chest palpation & inspection: normal inspection of the chest Resp: Other: Apnea Cardio: Other: No cardiac activity noted with palpation of pulses or auscultation of the chest GI: Inspection: Yes normal to inspection Back/Spine/Pelvis: Thoracic/Lumbar Spine: thoracic and lumbar spine normal to inspection Skin: General skin exam: no rashes or lesions noted Neuro: Other: Unresponsive General: patient obtunded MDM - Cardiac Arrest/CPR MDM Narrative Medical decision making narrative: 71-year-old male unknown down time, 45 minutes of ACLS prior to arrival in the hospital. Bedside ultrasound in the emergency department shows no cardiac acti vity. Patient was pronounced at 7:37 p.m. The case was discussed with the biomedical equipment support specialist's office, Sienna Barajas is the intake provider. Daughter and friend at bedside and are aware of the Medical examiners acceptance of the case. Differential Diagnosis Differential diagnosis: Likely cardiac arrest and sudden cardiac Medical Records Attestation: I reviewed the patient's medical records. Discharge Plan Discharge Clinical Impression: Cardiac arrest, Sudden cardiac , Contusion of scalp Prescriptions: No Action dabigatran etexilate 150 mg capsule 150 mg PO BID 90 Days Qty: 180 3RF diltiazem HCl [Tiadylt ER] 240 mg capsule,extended release 24 hr 240 mg PO DAILY allopurinol 300 mg tablet 300 mg PO DAILY ezetimibe 10 mg tablet 10 mg PO DAILY doxazosin 4 mg tablet 4 mg PO DAILY levothyroxine 50 mcg tablet 50 mcg PO DAILY pravastatin 80 mg tablet 80 mg PO DAILY ramipril 2.5 mg capsule 2.5 mg PO DAILY cholecalciferol (vitamin D3) 50 mcg (2,000 unit) capsule 50 mcg PO DAILY cyanocobalamin (vitamin B-12) 1,000 mcg capsule 1,000 mcg PO DAILY folic acid 0.8 mg capsule 0.8 mg PO DAILY Probiotic 3 billion cell capsule 3,000 mmu cells PO DAILY 90 Days Qty: 90 2RF diltiazem HCl [Tiadylt ER] 180 mg capsule,extended release 24 hr 180 mg PO BEDTIME Men's 50 Plus Multivitamin 400-20-370 mcg tablet 1 tab PO DAILY
--- NOTE | 2022-09-06 20:33 | PC.NURSE ---
[facility] contacted. Pt has been accepted as a candidate. Ref # [id number] per Jeannette.
--- NOTE | 2022-09-06 20:35 | PC.NURSE ---
Triage Register Nurse called at 2023 spoke with Sienna ,Gave patient demographics speaking with at this time.
[2022-09-06 20:37] VITALS: BMI 28.2
--- NOTE | 2022-09-06 20:54 | PC.NURSE ---
Vending Attendant accepted patient [id number]
--- NOTE | 2022-09-06 21:58 | PC.NURSE ---
Copy of chart for ME and for [facility] went with patient to [facility].
== END 2022-09-06 23:50 | disposition expired ==
PROVIDERS: Emergency Provider Emergency Medicine
DX: I46.9 Cardiac arrest, cause unspecified (principal); S00.03XA Contusion of scalp, initial encounter; X58.XXXA Exposure to other specified factors, initial encounter; I10 Essential (primary) hypertension; E78.00 Pure hypercholesterolemia, unspecified; I48.19 Other persistent atrial fibrillation; F10.10 Alcohol abuse, uncomplicated; F17.200 Nicotine dependence, unspecified, uncomplicated; F12.90 Cannabis use, unspecified, uncomplicated; Z79.01 Long term (current) use of anticoagulants; Z79.02 Long term (current) use of antithrombotics/antiplatelets; Z79.899 Other long term (current) drug therapy; Y93.9 Activity, unspecified; Y92.9 Unspecified place or not applicable; Y99.9 Unspecified external cause status
CPT/HCPCS: 82947; 99282; 99284; J0171